=== PATIENT | female | born 1995 | race Caucasian/White ===

== ENCOUNTER 2021-11-01 23:56 | Inpatient (IN) | payer MEDICAID, SELFPAY ==
[2021-11-02] VITALS (9 sets, daily range): BP systolic 108–143; BP diastolic 71–90; PULSE 89–131; RESP 16–18; TEMP 36.6–39.2; O2SAT 97–100; BMI 20.2
--- NOTE | 2021-11-02 00:46 | XRR_ITS ---
PROCEDURE INFORMATION: Exam: XR Chest Exam date and time: 11/02/2021 1:06 AM Age: 25 years old Clinical indication: Fever; Additional info: Fever post TECHNIQUE: Imaging protocol: Radiologic exam of the chest. Views: 1 view. COMPARISON: No relevant prior studies available. FINDINGS: Lungs: There are normal lung volumes without interstitial or airspace opacities. Pleural spaces: There are no pleural effusions or pneumothorax. Heart/Mediastinum: The heart size is normal. The mediastinal contour is normal. The trachea is in the midline. Bones/joints: No acute abnormalities. XR/XR chest 1V portable [id number] IMPRESSION: No chest radiographic evidence of acute cardiopulmonary disease.
--- NOTE | 2021-11-02 00:46 | USR_ITS ---
PROCEDURE INFORMATION: Exam: US Nonobstetric Pelvis; Complete Exam date and time: 11/02/2021 2:03 AM Age: 25 years old Clinical indication: Pelvic pain; Additional info: Fever vaginal bleeding post TECHNIQUE: Imaging protocol: Transabdominal pelvic nonobstetric ultrasound. Complete exam. Real time ultrasound with image documentation. COMPARISON: No relevant prior studies available. FINDINGS: Uterus: The transabdominal images of the pelvis show enlarged, heterogeneous echotexture uterus, measuring 13.1 x 11.8 x 11.7 cm in size. Small amount of intrauterine cavity heterogeneous echotexture fluid is seen. The endometrial stripe measures 1.9 cm. Color Doppler flow assessment was not performed by the cephalometric technician, which limits evaluation. Right ovary/adnexa: The right ovary measures 4 x 1.9 x 2 cm. Normal blood flow on Doppler imaging. No mass. Left ovary/adnexa: The left ovary measures 3.8 x 5.5 x 4.4 cm. Normal blood flow on Doppler imaging. No mass. Intraperitoneal space: There is no free fluid in the cul-de-sac. Urinary bladder: Not distended on the exam, limiting assessment. US/US pelvic limited [id number] IMPRESSION: 1. Enlarged, heterogeneous echotexture uterus, measuring 13.1 x 11.8 x 11.7 cm in size. Small amount of intrauterine cavity heterogeneous echotexture fluid. The endometrial stripe measures 1.9 cm. 2. Unremarkable sonographic appearance of the ovaries. 3. No free fluid in the pelvic cul-de-sac.
[2021-11-02] MEDS: ibuprofen 600 mg Tablet PO (01:42)
[2021-11-02] MEDS: sodium chloride 0.9% 1,000 ML 999 ML IV ×2 (01:45→03:35)
--- NOTE | 2021-11-02 01:45 | ED_ITS ---
HPI - Fever General: Chief Complaint: Fever Stated Complaint: fever; chills; gave 4 days ago Time Seen by Provider: 11/02/21 00:58 Source: patient and family History of Present Illness: 25-year-old female who gave via vaginal delivery 4 days prior. She presents with fever today. She has some chills. She has not noticed an increase in bleeding, or any other vaginal discharge. No increased pelvic pain, although she does have some pelvic pain and tenderness. No cough, no shortness of breath, no vomiting. No known sick contacts. Child is healthy. MD elicited complaint: fever Onset (ago): hour(s) Context: recent hospitalization and other Exacerbating factors: nothing Relieving factors: acetaminophen Associated symptoms: Reports abdominal pain and chills; Deny flank pain, chest pain, confusion, cough, diarrhea, dysuria, headache(s), nausea, short of breath, vaginal discharge or vomiting Treatments prior to arrival fever: acetaminophen Review of Systems Const: Reports: chills ENMT: Denies: throat pain Card: Denies: chest pain Resp: Denies: dyspnea, productive cough or non-productive cough GI: Reports: abdominal pain; Denies: nausea, vomiting or diarrhea : Denies: flank pain, dysuria or vaginal discharge Neuro: Denies: headache(s) or confusion Physical Exam Const: GENERAL APPEARANCE: cooperative; not frail appearing HENMT: COMMON NORMALS: normocephalic, atraumatic and Normal external nose present HEAD & SCALP: normocephalic and atraumatic FACE & SINUS: normal facial exam and face symmetric NOSE: Normal external nose present Eye: COMMON NORMALS: Equal, round and reactive pupils present and EOMs intact bilaterally PUPIL: Yes Equal, round and reactive pupils present Neck/C-Spine: GENERAL: Yes trachea midline Chest: CHEST: Yes Symmetrical chest wall rise Resp: COMMON NORMALS: normal respiratory effort, No use of accessory muscles and clear to auscultation bilaterally AUSCULTATION: clear to auscultation bilaterally Cardio: COMMON NORMALS: regular rate and regular rhythm RATE: regular rate RHYTHM: regular rhythm GI: COMMON NORMALS: Normal to inspection, nondistended, normoactive bowel sounds present and Soft to palpation PALPATION: Yes Soft to palpation and Yes Tenderness to palpation present (GI) (Mild suprapubic) Extremity: COMMON NORMALS: normal to inspection and no pedal edema Neuro: ENRIQUE COMA SCALE: document GCS findings [place] coma scale eye o pening: Spontaneous [place] coma scale verbal response: Orientated Enrique coma scale motor response: Obey commands [place] coma scale total score: 15 Course Vital Signs: Vital signs: Vital Signs Temperature 101.6 F H 11/02/21 15:22 Pulse Rate 118 H 11/02/21 12:00 Respiratory Rate 16 11/02/21 12:00 Blood Pressure 127/83 11/02/21 12:00 Pulse Oximetry 97 11/02/21 12:00 MDM - Fever Medical Decision Making Significant fever here. She has a Leukocytosis with a bit of a left shift. urinanalysis is contaminated, but does show increased number of white cells with leukocyte esterase. Pelvic ultrasound shows an endometrial stripe of 1.9 centimeters, and heterogeneous echotexture material in the uterus. Clinical diagnosis of endometritis. Spoke with gynecology. Admission, broad spectrum antibiotics, fluid support, and symptomatic treatment. He will see later today. Lab Data : 11/02/21 01:45 11/02/21 01:45 Radiology Impressions Chest X-Ray 11/02/21 00:46 IMPRESSION: No chest radiographic evidence of acute cardiopulmonary disease. Pelvis Ultrasound 11/02/21 00:46 IMPRESSION: 1. Enlarged, heterogeneous echotexture uterus, measuring 13.1 x 11.8 x 11.7 cm in size. Small amount of intrauterine cavity heterogeneous echotexture fluid. The endometrial stripe measures 1.9 cm. 2. Unremarkable sonographic appearance of the ovaries. 3. No free fluid in the pelvic cul-de-sac. Laboratory Results WBC 15.5 10^3/uL (4.0-10.0) H 11/02/21 01:45 RBC 3.94 10^6/uL (4.1-5.3) L 11/02/21 01:45 Hgb 13.3 g/dL (11.5-15.3) 11/02/21 01:45 Hct 35.9 % (37.0-47.0) L 11/02/21 01:45 MCV 91.1 fl (81-99) 11/02/21 01:45 MCH 33.8 pg (28.0-34.0) 11/02/21 01:45 MCHC 37.0 g/dL (30.0-36.0) H 11/02/21 01:45 RDW 11.6 % (12.1-15.1) L 11/02/21 01:45 Plt Count 221 10^3/cmm (130-400) 11/02/21 01:45 MPV 9.3 fL (7.4-10.4) 11/02/21 01:45 Neut % (Auto) 86.8 % 11/02/21 01:45 Lymph % (Auto) 7.6 % 11/02/21 01:45 [place] % (Auto) 4.6 % 11/02/21 01:45 Eos % (Auto) 0.3 % 11/02/21 01:45 Baso % (Auto) 0.2 % 11/02/21 01:45 Neut # (Auto) 13.46 10^3/uL (1.8-7.7) H 11/02/21 01:45 Lymph # (Auto) 1.2 10^3/uL (0.8-4.8) 11/02/21 01:45 [place] # (Auto) 0.7 10^3/uL (0.2-0.9) 11/02/21 01:45 Eos # (Auto) 0.0 10^3/uL (0.0-0.8) 11/02/21 01:45 Baso # (Auto) 0.0 10^3/uL (0.0-0.1) 11/02/21 01:45 Nucleated RBC % (auto) 0 % 11/02/21 01:45 Nucleated RBCs # 0.0 /100WBC 11/02/21 01:45 PT 12.70 SECONDS (12.1-14.9) 11/02/21 01:45 INR 0.93 (0.8-1.2) 11/02/21 01:45 APTT 30.3 SECONDS (23.9-36.7) 11/02/21 01:45 Sodium 136 mmol/L (136-145) 11/02/21 01:45 Potassium 3.6 mmol/L (3.5-5.1) 11/02/21 01:45 Chloride 103 mmol/L (98-107) 11/02/21 01:45 Carbon Dioxide 21 mmol/L (22-29) L 11/02/21 01:45 Anion Gap 15.6 (5-19) 11/02/21 01:45 BUN 15 mg/dL (6-20) 11/02/21 01:45 Creatinine 0.6 mg/dL (0.5-0.9) 11/02/21 01:45 GFR Calculation 120.8 mL/min (90-130) 11/02/21 01:45 Glucose 96 mg/dL (65-115) 11/02/21 01:45 Calculated Osmolality 283 mOsm/kg (285-295) L 11/02/21 01:45 Lactate 1.1 mmol/L (0.5-2.2) 11/02/21 01:45 Calcium 9.1 mg/dL (8.5-10.5) 11/02/21 01:45 Total Bilirubin 0.2 mg/dL (0.15-1.2) 11/02/21 01:45 AST 43 U/L (0-32) H 11/02/21 01:45 ALT 63 U/L (0-33) H 11/02/21 01:45 Alkaline Phosphatase 153 IU/L (35-105) H 11/02/21 01:45 C-Reactive Protein 54.0 mg/L (0.0-4.9) H 11/02/21 01:45 Total Protein 6.8 g/dL (6.6-8.7) 11/02/21 01:45 Albumin 3.7 g/dL (3.5-5.2) 11/02/21 01:45 Globulin 3.1 g/dL (1.3-4.6) 11/02/21 01:45 Urine Color [place] (Yellow) 11/02/21 01:56 Urine Appearance Hazy (CLEAR) A 11/02/21 01:56 Urine pH 5 (5-7) 11/02/21 01:56 Ur Specific [place] 1.020 (1.005-1.030) 11/02/21 01:56 Urine Protein Trace (Negative) 11/02/21 01:56 Urine Glucose (UA) Norm (Normal) 11/02/21 01:56 Urine Ketones Negative (Negative) 11/02/21 01:56 Urine Blood 3+ (Negative) H 11/02/21 01:56 Urine Nitrate Negative (Negative) 11/02/21 01:56 Urine Bilirubin Neg (Negative) 11/02/21 01:56 Urine Urobilinogen Norm mg/dL (Negative) 11/02/21 01:56 Ur Leukocyte Esterase 2+ (Negative) H 11/02/21 01:56 Urine RBC 25-40 /hpf (0-2) H 11/02/21 01:56 Urine WBC 55-80 /hpf (0-5) H 11/02/21 01:56 Ur Squamous Epith Cells 15-25 /hpf (0-5) H 11/02/21 01:56 Amorphous Sediment Not Reportable 11/02/21 01:56 Urine Bacteria 1+ /hpf (NONE) H 11/02/21 01:56 Urine Mucus Trace /hpf 11/02/21 01:56 Coronavirus 229E (PCR) Not detected (NOT DETECT) 11/02/21 01:48 SARS-CoV-2 (PCR) Not detected (NOT DETECT) 11/02/21 01:48 Discharge Plan Discharge Patient Disposition: Admitted As Inpatient Admit Provider: Daren Saxena Clinical Impression: fever, Endometritis Condition: Stable Coding Level of Care Code ED Assistant Auto Center Manager for [place] Fwd Exam Comprehensive
[2021-11-02 01:55] LABS: Basophils % 0.2 %; Eosinophils % 0.3 %; Hematocrit 35.9 % (37.0-47.0); Hemoglobin 13.3 g/dL (11.5-15.3); Lymphocytes # 1.2 10^3/uL (0.8-4.8); Lymphocytes % 7.6 %; Mean Corpuscular Hemoglobin 33.8 pg (28.0-34.0); Mean Corpuscular Volume 91.1 fl (81-99); Mean Platelet Volume 9.3 fL (7.4-10.4); Monocytes # 0.7 10^3/uL (0.2-0.9); Monocytes % 4.6 %; Neutrophils # 13.46 10^3/uL (1.8-7.7); Neutrophils % 86.8 %; Nucleated Red Blood Cells % 0 %; Platelet Count 221 10^3/cmm (130-400); Red Blood Count 3.94 10^6/uL (4.1-5.3); Red Cell Distribution Width 11.6 % (12.1-15.1); White Blood Count 15.5 10^3/uL (4.0-10.0)
[2021-11-02 02:05] LABS: INR 0.93 (0.8-1.2)
[2021-11-02 02:06] LABS: Partial Thromboplastin Time 30.3 SECONDS (23.9-36.7)
[2021-11-02 02:12] LABS: Add Urine Microscopic? YES; Bilirubin Urine Neg (Negative); Blood Urine 3+ (Negative); Glucose Urine UA Norm (Normal); Ketones Urine Negative (Negative); Leukocyte Esterase Urine 2+ (Negative); Nitrate Urine Negative (Negative); Protein Urine Trace (Negative); Urine Appearance Hazy (CLEAR); Urine Color Orange (Yellow); Urobilinogen Urine Norm (Negative); pH Urine 5 (5-7)
[2021-11-02 02:13] LABS: RBC Urine 25-40 /hpf (0-2); Squamous Epithelial Cell Urine 15-25 /hpf (0-5); WBC Urine 55-80 /hpf (0-5)
[2021-11-02 02:14] LABS: Add Urine Culture? No; Bacteria Urine 1+ /hpf; Mucus Urine TRACE /hpf
[2021-11-02 02:14] LABS: Lactate (Lactic Acid level) 1.1 mmol/L (0.5-2.2)
[2021-11-02 02:17] LABS: Alanine Aminotransferase 63 U/L (0-33); Albumin Level 3.7 g/dL (3.5-5.2); Alkaline Phosphatase 153 IU/L (35-105); Anion Gap 15.6 (5-19); Aspartate Amino Transferase 43 U/L (0-32); Blood Urea Nitrogen 15 mg/dL (6-20); Calcium 9.1 mg/dL (8.5-10.5); Carbon Dioxide 21 mmol/L (22-29); Chloride 103 mmol/L (98-107); Globulin 3.1 g/dL (1.3-4.6); Glomerular Filtration Rate 120.8 mL/min (90-130); Glucose 96 mg/dL (65-115); Osmolality Calculated 283 mOsm/kg (285-295); Potassium 3.6 mmol/L (3.5-5.1); Sodium 136 mmol/L (136-145); Total Bilirubin 0.2 mg/dL (0.15-1.2); Total Protein 6.8 g/dL (6.6-8.7)
[2021-11-02] MEDS: piperacillin-tazobactam 4.5 GM in sodium chloride 0.9% (plus) 50 ML IV (02:44)
[2021-11-02 03:40] LABS: Adenovirus Not Detected (NOT DETECT); Chlamydia Pneumoniae Not Detected (NOT DETECT); Coronavirus 229E,HKU1,NL63,OC4 Not Detected (NOT DETECT); Human Metapneumovirus Not Detected (NOT DETECT); Human Rhinovirus/Enterovirus Not Detected (NOT DETECT); Influenza A Not Detected (NOT DETECT); Influenza A H1 Not Detected (NOT DETECT); Influenza A H1-2009 Not Detected (NOT DETECT); Influenza A H3 Not Detected (NOT DETECT); Influenza B Not Detected (NOT DETECT); Mycoplasma Pneumoniae Not Detected (NOT DETECT); Parainfluenza Virus Type 1 Not Detected (NOT DETECT); Parainfluenza Virus Type 2 Not Detected (NOT DETECT); Parainfluenza Virus Type 3 Not Detected (NOT DETECT); Parainfluenza Virus Type 4 Not Detected (NOT DETECT); Respiratory Syncytial Virus A Not Detected (NOT DETECT); Respiratory Syncytial Virus B Not Detected (NOT DETECT); SARS-COV-2 Not Detected (NOT DETECT)
[2021-11-02] MEDS: sodium chloride 0.9% 1,000 ML 100 ML IV ×2 (06:48→17:51)
[2021-11-02] MEDS: clindamycin 600 MG/50 ML PREMIX 100 MG IV (06:49)
[2021-11-02] MEDS: acetaminophen 500 mg Tablet 1000 MG PO ×3 (12:08→20:36)
--- NOTE | 2021-11-02 12:45 | PM.OBGYHP ---
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 She was diagnosed with endometritis and was admitted for IV antibiotic therapy. Review of Systems Const: Reports: chills ENMT: Denies: throat pain Card: Denies: chest pain Resp: Denies: dyspnea, productive cough or non-productive cough GI: Reports: abdominal pain; Denies: nausea, vomiting or diarrhea : Reports: vaginal bleeding (Normal lochia); Denies: flank pain, dysuria, vaginal discharge or pelvic pain Skin/Breast: Reports: breast swelling, nipple discharge and change in breast shape; Denies: breast pain Neuro: Denies: headache(s) or confusion Medications/Allergies Home Medications Medication Instructions Recorded Confirmed Last Taken Type acetaminophen 325 mg capsule 325 mg PO Q4H PRN #60 cap 11/05/21 Unknown Rx amoxicillin 875 mg-potassium 1 tab PO BID 7 Days #14 tab 11/05/21 Unknown Rx clavulanate 125 mg tablet Allergies Allergy/AdvReac Type Severity Reaction Status Date / Time No Known Allergies Allergy Unverified 11/02/21 12:12 Vitals/I&O/Wt Last Vital Signs Temp 98.4 F 11/05/21 08:00 Pulse 102 H 11/05/21 08:00 Resp 16 11/05/21 08:00 BP 121/89 11/05/21 08:00 Pulse Ox 98 11/05/21 08:00 11/04/21 11/05/21 11/05/21 22:59 06:59 14:59 Intake Total 1697.75 / 3474.417 500 / 3974.417 50 / 50 Balance 1697.75 / 3474.417 500 / 3974.417 50 / 50 Physical Exam Narrative: GA; alert and oriented x 3 HEENT: normal Breasts: engorged Nipples - skin intact Lungs; clear to auscultation Heart: regular rhythm, no murmurs. Abd: Appropriately tender. BS+. Uterine fundus below umbilicus. No Fundal Tenderness. Perineum: normal lochia. Extremities: no edema, no cyanosis, no tenderness. Data : 11/02/21 01:45 11/02/21 01:45 Results DOCUMENT REVIEW SPECIALIST Ultrasound [address] [id number] ReportSigned Patient: Alexis Alvarez #: [id number]: 1995Acct#:[id number]/Sex: 25 / FADM Date: 11/01/21Loc: ERRoom/Bed:Attending Dr: Ordering Provider/Ordering MD: Shahram Cosme DO Date of Service: 11/02/21 Procedure(s): US pelvic limited [id number] Accession Number(s): [id number] Report Number: [id number] PROCEDURE INFORMATION: Exam: US Nonobstetric Pelvis; Complete Exam date and time: 11/02/2021 2:03 AM Age: 25 years old Clinical indication: Pelvic pain; Additional info: Fever vaginal bleeding post TECHNIQUE: Imaging protocol: Transabdominal pelvic nonobstetric ultrasound. Complete exam. Real time ultrasound with image documentation. COMPARISON: No relevant prior studies available. FINDINGS: Uterus: The transabdominal images of the pelvis show enlarged, heterogeneous echotexture uterus, measuring 13.1 x 11.8 x 11.7 cm in size. Small amount of intrauterine cavity heterogeneous echotexture fluid is seen. The endometrial stripe measures 1.9 cm. Color Doppler flow assessment was not performed by the senior python developer, which limits evaluation. Right ovary/adnexa: The right ovary measures 4 x 1.9 x 2 cm. Normal blood flow on Doppler imaging. No mass. Left ovary/adnexa: The left ovary measures 3.8 x 5.5 x 4.4 cm. Normal blood flow on Doppler imaging. No mass. Intraperitoneal space: There is no free fluid in the cul-de-sac. Urinary bladder: Not distended on the exam, limiting assessment. US/US pelvic limited [id number] IMPRESSION: 1. Enlarged, heterogeneous echotexture uterus, measuring 13.1 x 11.8 x 11.7 cm in size. Small amount of intrauterine cavity heterogeneous echotexture fluid. The endometrial stripe measures 1.9 cm. 2. Unremarkable sonographic appearance of the ovaries. 3. No free fluid in the pelvic cul-de-sac. Dictated By:Uche Hernandez MDSigned By:Uche Hernandez MDSigned Date/Time:11/02/212DD/ 0203 A&P Assessment and plan (1) endometritis: Rectum well 25-year-old female G1, P1 is status post a spontaneous vaginal delivery 4 days ago. Came to the emergency room with elevated temperature 102.6F. Diagnosed with endometritis. Admitted for IV triple antibiotic therapy. Blood cultures pending. Plan We will continue antibiotic therapy until 48 hours afebrile. Status: Acute Attestations Medical Necessity Statement*: In my professional opinion per admitting diagnosis Coding Level of Care Code Acute Printed Circuit Board Panels Plater for Vickie Pabon Diagnoses endometritis O86.12
[2021-11-02] MEDS: ampicillin 2,000 MG in sodium chloride 0.9% (plus) 50 ML 100 MG IV ×2 (12:59→17:50)
[2021-11-02] MEDS: clindamycin 900 MG/50 ML PREMIX 100 MG IV ×2 (13:40→20:36)
[2021-11-03] VITALS: BP 122/74; PULSE 82; RESP 17; TEMP 36.6; O2SAT 97
[2021-11-03] MEDS: ampicillin 2,000 MG in sodium chloride 0.9% (plus) 50 ML 100 MG IV ×4 (01:04→18:53)
[2021-11-03 04:00] VITALS: BP 129/85; PULSE 92; RESP 17; TEMP 37.2; O2SAT 98
[2021-11-03] MEDS: sodium chloride 0.9% 1,000 ML 100 ML IV ×2 (04:16→15:57)
[2021-11-03] MEDS: clindamycin 900 MG/50 ML PREMIX 100 MG IV ×3 (05:06→20:41)
[2021-11-03 08:00] VITALS: BP 130/73; PULSE 75; RESP 15; TEMP 37.4; O2SAT 99
--- NOTE | 2021-11-03 08:07 | P.PN_ITS ---
Subjective Subjective: Rectal 25-year-old female 6-day with endometritis. Antibiotic therapy Vitals/I&O/Wt Last Vital Signs Temp 97.9 F 11/04/21 04:00 Pulse 88 11/04/21 04:00 Resp 17 11/04/21 04:00 BP 125/76 11/04/21 04:00 Pulse Ox 97 11/04/21 04:00 11/03/21 11/04/21 11/04/21 22:59 06:59 14:59 Intake Total 1647.75 / 2397.75 1138.333 / 3536.083 Balance 1647.75 / 2397.75 1138.333 / 3536.083 Physical Exam Narrative: GA; alert and oriented x 3 HEENT: normal Breasts: engorged Nipples - skin intact Lungs; clear to auscultation Heart: regular rhythm, no murmurs. Abd: Appropriately tender. BS+. Uterine fundus below umbilicus. No Fundal Tenderness. Perineum: normal lochia. Extremities: no edema, no cyanosis, no tenderness. Data : 11/02/21 01:45 11/02/21 01:45 A&P Assessment and plan (1) Endometritis: Rectum well 25-year-old female G1, P1 is status post a spontaneous vaginal delivery 6 days ago. Came to the emergency room with elevated temperature. Diagnosed with endometritis started on IV triple antibiotic therapy. Preliminary blood cultures negative. Status: Acute (2) fever: Status: Acute Plan We will continue antibiotic therapy for 48 hours afebrile. Attestations Medical Necessity Statement*: In my professional opinion per admitting diagnosis Coding Level of Care Code Acute Loan Examiner for Vickie Pabon Diagnoses Endometritis N71.9 fever O86.4
--- NOTE | 2021-11-03 10:47 | PC.CHAP ---
Pastoral Care Encounter/Spiritual Assessment Type of Contact [] Declined account planner visit [] Patient/Family/Request visit [] Outpatient visit [] Follow-up visit [] Physician referral [] Code/Alert [x] Routine visit [] Staff referral [] Actively dying [] Patient sleeping [] Family support [] [] Out of room [] Palliative care [] [] Receiving care in room [] Pre-surgical visit [] Trauma [] Long length of stay [] ICU visit [] Other: Relational/Emotional Strength [x] Patient feels connected with others/family/visitors/staff [] Distress [] Loneliness/isolation [] Abandonment Spirituality of Patient [x] Person of Martha [] Attends Yazidi of their Martha [x] Believes in Prayer [] Reads Bible or Oriental Orthodox materials [] There are Spiritual issues to be addressed 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 Interventions [x] Prayer [x] Active listening [] Non-anxious presence [] Spiritual/emotional support [] Crisis/trauma care [] Spiritual counseling [] Bereavement support [] Provided bereavement packet [] Provided Bible/devotional materials [] Provided toy/stuffed animal, coloring book to patient or family member [] Provided Communion [] Anointing/Alger [] Salvation [x] Completed spiritual assessment [] Other: Impact on Illness or Injury [] Angry [] Fearful [] Anxious [] Often cries [] Exhaustion [] Unable to work [] Unable to attend spiritism [] Unable to walk/stand [] Unable to read [] Unable to drive [] Unable to eat/drink [] Unable to sleep [] Unable to be with family [] Patient intubated [] Other: Summary Time spent with patient 10 min
[2021-11-03 11:57] VITALS: BP 112/72; PULSE 94; RESP 15; TEMP 36.8; O2SAT 98
[2021-11-03 13:19] LABS: Gentamicin Trough 0.3 ug/mL (0.0-8.0)
[2021-11-03 15:36] VITALS: BP 118/82; PULSE 98; RESP 15; TEMP 37.3; O2SAT 98
[2021-11-03 19:58] VITALS: BP 130/89; PULSE 93; RESP 17; TEMP 37.3; O2SAT 97
[2021-11-04] VITALS: RESP 16; TEMP 36.2
[2021-11-04] MEDS: ampicillin 2,000 MG in sodium chloride 0.9% (plus) 50 ML 100 MG IV ×4 (00:18→18:13)
[2021-11-04 04:00] VITALS: BP 125/76; PULSE 88; RESP 17; TEMP 36.6; O2SAT 97
[2021-11-04] MEDS: sodium chloride 0.9% 1,000 ML 100 ML IV ×2 (04:02→11:54)
[2021-11-04] MEDS: clindamycin 900 MG/50 ML PREMIX 100 MG IV ×3 (04:59→21:11)
[2021-11-04 08:00] VITALS: BP 111/77; PULSE 94; RESP 16; TEMP 36.6; O2SAT 98
--- NOTE | 2021-11-04 08:13 | PM.PN ---
Subjective Subjective: Rectal 25-year-old female 7-days with endometritis. Antibiotic therapy. Without fever Vitals/I&O/Wt Last Vital Signs Temp 97.9 F 11/04/21 04:00 Pulse 88 11/04/21 04:00 Resp 17 11/04/21 04:00 BP 125/76 11/04/21 04:00 Pulse Ox 97 11/04/21 04:00 11/03/21 11/04/21 11/04/21 22:59 06:59 14:59 Intake Total 1647.75 / 2397.75 1138.333 / 3536.083 Balance 1647.75 / 2397.75 1138.333 / 3536.083 Physical Exam Narrative: GA; alert and oriented x 3 HEENT: normal Breasts: engorged Nipples - skin intact Lungs; clear to auscultation Heart: regular rhythm, no murmurs. Abd: Appropriately tender. BS+. Uterine fundus below umbilicus. No Fundal Tenderness. Perineum: normal lochia. Extremities: no edema, no cyanosis, no tenderness. Data : 11/02/21 01:45 11/02/21 01:45 A&P Assessment and plan (1) Endometritis: MrsBethanie Rectum well 25-year-old female G1, P1 is status post a spontaneous vaginal delivery 7 days ago. Came to the emergency room with elevated temperature. Diagnosed with endometritis started on IV triple antibiotic therapy. Preliminary blood cultures negative. Status: Acute (2) fever: Status: Acute Plan We will continue antibiotic therapy for 48 hours afebrile. Plan to discharge home tomorrow morning Attestations Medical Necessity Statement*: My professional opinion per admitting diagnosis Coding Level of Care Code Acute Special Education Math Teacher for [facility] Fwd Diagnoses Endometritis N71.9 fever O86.4
[2021-11-04 12:00] VITALS: BP 125/84; PULSE 96; RESP 16; TEMP 36.5; O2SAT 98
[2021-11-04 16:00] VITALS: BP 119/85; PULSE 96; RESP 16; TEMP 37.2; O2SAT 98
[2021-11-04 19:18] VITALS: BP 131/90; PULSE 98; RESP 18; TEMP 36.8; O2SAT 98
[2021-11-05] VITALS: RESP 18; TEMP 36.8
[2021-11-05] MEDS: ampicillin 2,000 MG in sodium chloride 0.9% (plus) 50 ML 100 MG IV ×2 (00:51→06:39)
[2021-11-05] MEDS: clindamycin 900 MG/50 ML PREMIX 100 MG IV (05:15)
[2021-11-05] MEDS: sodium chloride 0.9% 1,000 ML 100 ML IV (05:25)
[2021-11-05 05:26] VITALS: BP 118/80; PULSE 70; RESP 16; TEMP 36.7; O2SAT 97
[2021-11-05 08:00] VITALS: BP 121/89; PULSE 102; RESP 16; TEMP 36.9; O2SAT 98
--- NOTE | 2021-11-05 08:30 | P.DS_ITS ---
Discharge Providers DIRECTOR OF RECRUITMENT AND ADMISSIONS Date of Admission: 11/02/21 04:25 Date of Discharge: 11/05/21 Attending Provider at Admission: Daren Saxena MD Attending Provider at Discharge: Daren Saxena MD Diagnoses at Discharge Discharge Diagnosis (1) fever: Status: Acute (2) endometritis: Status: Acute Reason for Visit Reason for Visit: fever; chills; gave 4 days ago Brief History: 25-year-old female status post spontaneous vaginal delivery developed fever and chills on day 4. Hospital Course Hospital Course Mrs. Alvarez 25-year-old female G1, P1 is status post 7 days, came to the emergency room with feve of 102.6 F. She was diagnosed with endometritis and was admitted for IV antibiotic therapy. Antibiotic therapy was continue until the patient was 48 hours afebrile. Blood cultures were negative. Patient was counseled regarding pelvic rest for 6 weeks (no sex, no tampons, no vaginal douches). Return to the emergency room if any fever, increased bleeding or pain. Physical Exam Narrative: GA; alert and oriented x 3 HEENT: normal Breasts: engorged Nipples - skin intact Lungs; clear to auscultation Heart: regular rhythm, no murmurs. Abd: Appropriately tender. BS+. Uterine fundus below umbilicus. No Fundal Tenderness. Perineum: normal lochia. Extremities: no edema, no cyanosis, no tenderness. Discharge Data Studies Completed and Pending Completed Studies During Hospitalization Category Date Time Status XR chest 1V portable [id number] Urgent Exams 11/02/21 00:46 Completed US pelvic limited [id number] Urgent Ultrasound 11/02/21 00:46 Completed Pending at discharge Category Date Time Status Blood Culture Stat Lab 11/02/21 02:40 Results Radiology Impressions Chest X-Ray 11/02/21 00:46 IMPRESSION: No chest radiographic evidence of acute cardiopulmonary disease. Pelvis Ultrasound 11/02/21 00:46 IMPRESSION: 1. Enlarged, heterogeneous echotexture uterus, measuring 13.1 x 11.8 x 11.7 cm in size. Small amount of intrauterine cavity heterogeneous echotexture fluid. The endometrial stripe measures 1.9 cm. 2. Unremarkable sonographic appearance of the ovaries. 3. No free fluid in the pelvic cul-de-sac. Laboratory Results WBC 15.5 10^3/uL (4.0-10.0) H 11/02/21 01:45 RBC 3.94 10^6/uL (4.1-5.3) L 11/02/21 01:45 Hgb 13.3 g/dL (11.5-15.3) 11/02/21 01:45 Hct 35.9 % (37.0-47.0) L 11/02/21 01:45 MCV 91.1 fl (81-99) 11/02/21 01:45 MCH 33.8 pg (28.0-34.0) 11/02/21 01:45 MCHC 37.0 g/dL (30.0-36.0) H 11/02/21 01:45 RDW 11.6 % (12.1-15.1) L 11/02/21 01:45 Plt Count 221 10^3/cmm (130-400) 11/02/21 01:45 MPV 9.3 fL (7.4-10.4) 11/02/21 01:45 Neut % (Auto) 86.8 % 11/02/21 01:45 Lymph % (Auto) 7.6 % 11/02/21 01:45 [place] % (Auto) 4.6 % 11/02/21 01:45 Eos % (Auto) 0.3 % 11/02/21 01:45 Baso % (Auto) 0.2 % 11/02/21 01:45 Neut # (Auto) 13.46 10^3/uL (1.8-7.7) H 11/02/21 01:45 Lymph # (Auto) 1.2 10^3/uL (0.8-4.8) 11/02/21 01:45 [place] # (Auto) 0.7 10^3/uL (0.2-0.9) 11/02/21 01:45 Eos # (Auto) 0.0 10^3/uL (0.0-0.8) 11/02/21 01:45 Baso # (Auto) 0.0 10^3/uL (0.0-0.1) 11/02/21 01:45 Nucleated RBC % (auto) 0 % 11/02/21 01:45 Nucleated RBCs # 0.0 /100WBC 11/02/21 01:45 PT 12.70 SECONDS (12.1-14.9) 11/02/21 01:45 INR 0.93 (0.8-1.2) 11/02/21 01:45 APTT 30.3 SECONDS (23.9-36.7) 11/02/21 01:45 Sodium 136 mmol/L (136-145) 11/02/21 01:45 Potassium 3.6 mmol/L (3.5-5.1) 11/02/21 01:45 Chloride 103 mmol/L (98-107) 11/02/21 01:45 Carbon Dioxide 21 mmol/L (22-29) L 11/02/21 01:45 Anion Gap 15.6 (5-19) 11/02/21 01:45 BUN 15 mg/dL (6-20) 11/02/21 01:45 Creatinine 0.6 mg/dL (0.5-0.9) 11/02/21 01:45 GFR Calculation 120.8 mL/min (90-130) 11/02/21 01:45 Glucose 96 mg/dL (65-115) 11/02/21 01:45 Calculated Osmolality 283 mOsm/kg (285-295) L 11/02/21 01:45 Lactate 1.1 mmol/L (0.5-2.2) 11/02/21 01:45 Calcium 9.1 mg/dL (8.5-10.5) 11/02/21 01:45 Total Bilirubin 0.2 mg/dL (0.15-1.2) 11/02/21 01:45 AST 43 U/L (0-32) H 11/02/21 01:45 ALT 63 U/L (0-33) H 11/02/21 01:45 Alkaline Phosphatase 153 IU/L (35-105) H 11/02/21 01:45 C-Reactive Protein 54.0 mg/L (0.0-4.9) H 11/02/21 01:45 Total Protein 6.8 g/dL (6.6-8.7) 11/02/21 01:45 Albumin 3.7 g/dL (3.5-5.2) 11/02/21 01:45 Globulin 3.1 g/dL (1.3-4.6) 11/02/21 01:45 Urine Color [place] (Yellow) 11/02/21 01:56 Urine Appearance Hazy (CLEAR) A 11/02/21 01:56 Urine pH 5 (5-7) 11/02/21 01:56 Ur Specific Wall 1.020 (1.005-1.030) 11/02/21 01:56 Urine Protein Trace (Negative) 11/02/21 01:56 Urine Glucose (UA) Norm (Normal) 11/02/21 01:56 Urine Ketones Negative (Negative) 11/02/21 01:56 Urine Blood 3+ (Negative) H 11/02/21 01:56 Urine Nitrate Negative (Negative) 11/02/21 01:56 Urine Bilirubin Neg (Negative) 11/02/21 01:56 Urine Urobilinogen Norm mg/dL (Negative) 11/02/21 01:56 Ur Leukocyte Esterase 2+ (Negative) H 11/02/21 01:56 Urine RBC 25-40 /hpf (0-2) H 11/02/21 01:56 Urine WBC 55-80 /hpf (0-5) H 11/02/21 01:56 Ur Squamous Epith Cells 15-25 /hpf (0-5) H 11/02/21 01:56 Amorphous Sediment Not Reportable 11/02/21 01:56 Urine Bacteria 1+ /hpf (NONE) H 11/02/21 01:56 Urine Mucus Trace /hpf 11/02/21 01:56 Gentamicin Trough 0.3 ug/mL (0.0-8.0) 11/03/21 12:47 Coronavirus 229E (PCR) Not detected (NOT DETECT) 11/02/21 01:48 SARS-CoV-2 (PCR) Not detected (NOT DETECT) 11/02/21 01:48 Vitals Last Vital Signs Temp 98.4 F 11/05/21 08:00 Pulse 102 H 11/05/21 08:00 Resp 16 11/05/21 08:00 BP 121/89 11/05/21 08:00 Pulse Ox 98 11/05/21 08:00 Results HEMATOLOGIST ONCOLOGIST Ultrasound [address] [address]Sfpbewhivq ReportSigned Patient: Anaid AlvarezDavidfatmata #: [id number]: 1995Acct#: [id number]/Sex: 25 / FADM Date: 11/01/21Loc: ERRoom/Bed:Attending Dr: Ordering Provider/Ordering MD: Shahram Cosme DO Date of Service: 11/02/21 Procedure(s): US pelvic limited [id number] Accession Number(s): [id number] Report Number: [id number] PROCEDURE INFORMATION: Exam: US Nonobstetric Pelvis; Complete Exam date and time: 11/02/2021 2:03 AM Age: 25 years old Clinical indication: Pelvic pain; Additional info: Fever vaginal bleeding post TECHNIQUE: Imaging protocol: Transabdominal pelvic nonobstetric ultrasound. Complete exam. Real time ultrasound with image documentation. COMPARISON: No relevant prior studies available. FINDINGS: Uterus: The transabdominal images of the pelvis show enlarged, heterogeneous echotexture uterus, measuring 13.1 x 11.8 x 11.7 cm in size. Small amount of intrauterine cavity heterogeneous echotexture fluid is seen. The endometrial stripe measures 1.9 cm. Color Doppler flow assessment was not performed by the puttying and calking supervisor, which limits evaluation. Right ovary/adnexa: The right ovary measures 4 x 1.9 x 2 cm. Normal blood flow on Doppler imaging. No mass. Left ovary/adnexa: The left ovary measures 3.8 x 5.5 x 4.4 cm. Normal blood flow on Doppler imaging. No mass. Intraperitoneal space: There is no free fluid in the cul-de-sac. Urinary bladder: Not distended on the exam, limiting assessment. US/US pelvic limited [id number] IMPRESSION: 1. Enlarged, heterogeneous echotexture uterus, measuring 13.1 x 11.8 x 11.7 cm in size. Small amount of intrauterine cavity heterogeneous echotexture fluid. The endometrial stripe measures 1.9 cm. 2. Unremarkable sonographic appearance of the ovaries. 3. No free fluid in the pelvic cul-de-sac. Dictated By:Uche Hernandez MDSigned By:Uche Hernandez MDSigned Date/Time:11/02/21 0312DD/ [address] [address]AOpu ReportSigned Patient: Alexis Alvarez #: [id number]: 1995Acct#:[id number]/Sex: 25 / FADM Date: 11/01/21Loc: ERRoom/Bed:Attending Dr: Ordering Provider/Ordering MD: Shahram Cosme DO Date of Service: 11/02/21 Procedure(s): XR chest 1V portable [id number] Accession Number(s): [id number] Report Number: [id number] PROCEDURE INFORMATION: Exam: XR Chest Exam date and time: 11/02/2021 1:06 AM Age: 25 years old Clinical indication: Fever; Additional info: Fever post TECHNIQUE: Imaging protocol: Radiologic exam of the chest. Views: 1 view. COMPARISON: No relevant prior studies available. FINDINGS: Lungs: There are normal lung volumes without interstitial or airspace opacities. Pleural spaces: There are no pleural effusions or pneumothorax. Heart/Mediastinum: The heart size is normal. The mediastinal contour is normal. The trachea is in the midline. Bones/joints: No acute abnormalities. XR/XR chest 1V portable [id number] IMPRESSION: No chest radiographic evidence of acute cardiopulmonary disease. Dictated By:Uche Hernandez MDSigned By:Uche Hernandez MDSigned Date/Time:11/02/21 0307 Discharge Plan Discharge Patient Disposition: Home Condition: Stable Prescriptions: New amoxicillin-pot clavulanate 875-125 mg tablet 1 tab PO BID 7 Days Qty: 14 0RF acetaminophen 325 mg capsule 325 mg PO Q4H PRN (Reason: fever or pain) Qty: 60 0RF Continued No Known Home Medications 0RF Discharge Orders: Discharge Order (Routine); Ordered 11/05/21 Ordered By: Daren Saxena Referrals: Daren Saxena MD [Physician] - 6 Weeks Discharge Diet: Usual diet Discharge Activity: Limit activity as instructed Patient Instructions: Opioid Safety, Endometritis (GEN), Vaginal Delivery (GEN), Caring for Your Baby (GEN), Bleeding (GEN), Your 's Appearance (GEN) Activity Restrictions/Additional Instructions: 1. Please call [facility] on next working day to make your appointment in 6 weeks. 2. Please stay home until you come back to the clinic on first post-operative check up. 3. Please follow instructions on your medications CAREFULLY. 4. If you have abdominal incision, do not cover it unless dressing is necessary because of drainage. OK to shower, but avoid bath. Leave steri-strips until they fall off. If they are still on one week after surgery, you may remove them. 5. If you had vaginal surgery or vaginal repair, Dr. Saxena may instruct you to take SITZ bath. 6. Yellow, blood tinged odorous vaginal discharge is usually normal after hysterectomy or vaginal surgeries. 7. No sexual intercourse, tampons, or douches until you are completely released from the post-operative care. 8. Avoid constipation by eating right and maybe using some Metamucil or Milk of Magnesia. 9. All prescription refills are given during the working hours. Please do no wait till it runs out. Call the clinic at [phone] before your medication runs out. The clinic will get in touch with your doctor to prescribe medications if necessary. 10. Please remain within 40 mile radius from our hospital because emergencies do happen now and then during the post-operative period. 11. If you have stairs at home, take one step at a time slowly and minimize the number of trips. It helps to stay in one floor for the next few days. No lifting except what you can lift by one hand until you are released from the post-operative care. 12. Driving is discouraged until you are well healed. It may be 3-4 weeks before you feel strong enough to drive. You should be able to turn and look through the rear window without pain and you should be able to push the brake pedal very hard without pain before you drive. No fast rules, but SAFETY should be your primary concern. DO NOT drive if you are on sedating medications such as narcotics. 13. Call the clinic (during working hours) to make urgent appointment or go to the Emergency room, if any of the following occurs: i. Vaginal bleeding becomes heavy, more than a period. ii. Incision becomes red and sore, or drains pus. iii. Your temperature is over 100.4 or you have chill. iv. IV site becomes red and swollen (a little ``knot?? is usually OK) v. Persistent nausea and vomiting vi. Persistent constipation or diarrhea vii. Rash or allergic reaction to medications. Discharge Attestations DIRECTOR OF RECRUITMENT AND ADMISSIONS Time Spent in Discharge Care*: greater than 30 min Coding Level of Care Code [facility] [employer] Rep for Chg Fwd Diagnoses fever O86.4 endometritis O86.12
[2021-11-05 09:52] VITALS: BP 121/89; PULSE 102; RESP 16; TEMP 36.9; O2SAT 98
== END 2021-11-05 09:53 | disposition home or self-care (01) | DRG 776 ==
LOC: ER 11-02 04:21 → MEDSURG 11-02 04:48
PROVIDERS: Admitting Provider Obstetrics & Gynecology; Emergency Provider Emergency Medicine; Visit Provider Obstetrics & Gynecology
DX: O86.12 Endometritis following delivery (principal)
CPT/HCPCS: 36415; 71045; 76857; 80053; 80170; 81001; 83605; 85025; 85610; 85730; 86140; 87040; 87635; 96361; 96365; 99285; J0290; J1580; J2543; J3490; J7030

== ENCOUNTER 2025-01-23 22:55 | Emergency (ER) | payer SELFPAY ==
--- OUTSIDE RECORDS SUMMARY | 2023-09-27 08:00 | XMS_ITS ---
Author Organization [facility] Address [address] [place] [address] Care Team Providers Care Flat Surfacer Jewel Name Role Phone Sal Mooney Primary Care Provider Catherine Sauceda [phone] REASON FOR VISIT viability & dates Encounters Encounter Location Date Provider Diagnosis [address] [place] [address] 09/27/2023 Catherine Wan Plan Of Treatment No Information Progress Notes * SAPNA LEYDOB:1995 (29 yo F)Acc No.[id number]:09/27/2023 Progress Notes Patient: SAPNA ALFONSO Provider: Tolu Wan MD :1995 A ge:27 Y S ex:Female Date:09/27/2023 Address:[facility] [address] [id number] Pcp:Sal Mooney Subjective: * Chief Complaints: * V iability & dates * Electronic signature of Maryellen Wan MD on 01/23/2025 at 10:59 PM CDT Sign off status: Pending * Provider: Tolu Wan MD Date: 0 09/27/2023 Generated for Estuardo miles/Stefanie/eTransmitting on: 1 10:59 PM CDT
--- OUTSIDE RECORDS SUMMARY | 2024-11-27 10:45 | XMS_ITS ---
Author Organization [facility] Address [address] [place] [address] Care Team Providers Care Ceramic Tiler Name Role Phone Sal Mooney Primary Care Provider Catherine Sauceda [phone] REASON FOR VISIT 11/2024 PAP Encounters Encounter Location Date Provider Diagnosis [address] [place] [address] 11/27/2024 Catherine Wan Plan Of Treatment No Information Progress Notes * SAPNA LEYDOB:1995 (29 yo F)Acc No.[id number]:11/27/2024 Patient: SAPNA ALFONSO Provider: Tolu Wan MD :1995 A ge:28 Y S ex:Female Date:11/27/2024 Address:[facility] [address] [id number] Pcp:Sal Mooney Subjective: * Chief Complaints: * PAP * Electronic signature of Maryellen Wan MD on 01/23/2025 at 10:59 PM CDT Sign off status: Pending * Provider: Tolu Wan MD Date: 0 11/27/2024 Generated for Estuardo miles/Stefanie/eTransmitting on: 1 10:59 PM CDT
[2025-01-23 22:57] VITALS: BP 127/79; PULSE 98; RESP 18; TEMP 36.7; O2SAT 100; BMI 18.7
--- OUTSIDE RECORDS SUMMARY | 2025-01-23 22:59 | XMS_ITS | Patient Health Record ---
Author Organization [facility] Address [address] [place] [address] Care Team Providers Care Bindery Operator Name Role Phone Vinicio Sal Primary Care Provider Catherine Sauceda Unavailable [phone] Reason For Referral No Information Social History Tobacco Use: Social History Observation Description Date Details (start date - stop date) Never Smoker NA - NA Social History Drugs/Alcohol: Social Info Question Answer Notes Drugs Have you used drugs other than those for medical reasons in the past 12 months? No Drug/Alcohol: Social Info Question Answer Notes AUDIT-C (Standard) Did you have a drink containing alcohol in the past year? No Points 0 Interpretation Negative Tobacco Use: Social Info Question Answer Notes Tobacco Control (Standard) Tobacco use: Nonsmoker Section Notes: Negative x3, lives with husb and and daughter, safe, denies h/o abuse, SAHM Plan Of Treatment No Information Medical (General) History Surgical History Surgery Date(Month/Year) nasal polypectomy 2010 tonsillectomy 2002
--- OUTSIDE RECORDS SUMMARY | 2025-01-23 22:59 | XMS_ITS | Clinical Summary ---
Author Organization [facility] Address [address] [place] [address] Phone Care Team Providers Care Dental Cream Maker Name Role Phone Unavailable Primary Care Provider Unavailabl e Allergies No known active allergies Medications diaphragms, contoured (Caya Contoured) 65-80 mm DiaphragmIndicatio ns:Encounter for initial prescription of other contraceptives Insert 1 Device vaginally daily. 1 Each 2 Active Active Problems Problem Noted Date Diagnosed Date Threatened miscarriage in early 2023 Normal spontaneous vaginal delivery 10/28/2021 Encounter for supervision of normal first in first trimester 04/15/2021 , incidental 03/18/2021 Type A blood, Rh negative 03/18/2021 Primiparous 03/18/2021 Labor and delivery indication for care or interv ention Comments Yes Immunizations Immunization Administration Dates Next Due (ADACEL/BOOSTRIX)(10 YR UP) TDAP VACCINE, 0.5ML, IM 07/22/2021 Family History Medical History Relation Name Comments Breast Cancer Neg Hx Colon Cancer Neg Hx Ovarian Cancer Neg Hx Social History Tobacco Use Types Packs/Day Years Used Date Smoking Tobacco: Never Smokeless Tobacco: Never Alcohol Use Standard Drinks/Week Comments Not Currently 0 (1 standard drink = 0.6 oz pur e alcohol) Feeling Safe Answer Date Recorded Are you in a relationship wi th someone who hurts you emotionally and/or physically? No 08/20/2023 Comments Yes Sex and Gender Information Value Date Recorded Sex Assigned at Not on file Legal Sex Female 2:56 PM CDT Gender Identity Not on file Sexual Orientation Not on file Last Filed Vital Signs Vital Sign Reading Time Taken Comments Blood Pressure 108/81 08/20/2023 2:00 PM CDT Pulse 76 08/20/2023 2:00 PM CDT Temperature 36.6 C (97.8 F) 08/20/2023 2:00 PM CDT Respiratory Rate 16 08/20/2023 1:20 PM CDT Oxygen Saturation 100% 08/20/2023 2:00 PM CDT Inhaled Oxygen Concentration - - Weight 60.5 kg (133 lb 6.4 oz) 08/20/2023 11:45 AM CDT Height 172.7 cm (5' 8 ) 08/20/2023 11:45 AM CDT Body Mass Index 20.28 08/20/2023 11:45 AM CDT Plan of Treatment Health Maintenance Due Date Last Done Comments HEPATITIS B VACCINES (1 of 3 - 19+ 3-dose series) 04/2013 HPV VACCINES (1 - 3-dose SCDM series) 2021 INFLUENZA VACCINE (#1) 2024 PAP SMEAR 2024 12/09/2021 CERVICAL CANCER SCREENING 12/09/2026 HPV/Cotest (21-29) 12/09/2026 12/09/2021 HPV/Cotest (30-65) 12/09/2026 12/09/2021 DTAP/TDAP/TD VACCINES (2 - Td or Tdap) 07/23/2031 RSV VACCINE (60+ or ) (1 - 1-dose 75+ series) 2069 Procedures Procedure Name Priority Date/Time Associated Diagnosis Comments CERV/VAG CYTO SCREEN PAP RLFX HPV Routine 12/09/2021 3:23 PM CDT Screening for cervical cancer from Last 3 Months or Most Recently Relevant to Health Maintenance Results * CERV/VAG CYTO SCREEN PAP RLFX HPV (12/09/2021 3:23 PM CDT) CLINICAL INFORMATION Nora Trevino Comment:Information not prov ided LAST MENSTRUAL PERIOD Nora Trevino Comment:INFORMATION NOT PROV IDED PREV PAP: [email or web address] Diagnostics[facility]ra Trevino Comment:INFORMATION NOT PROV IDED PREV BX: [facility]-Philippe Trevino Comment:INFORMATION NOT PROV IDED SOURCE [facility]-S t Uriel Comment:ENDOCERVIX ADEQUACY: Nora XinrongMayra Trevino Comment:SATISFACTORY FOR KARLA LUATION PAP INTERP Nora ElaineMayra Trevino Comment: Negative for intraepithelial lesion or malignancy. Atrophic pattern; predominantly parabasal cells COMMENT (PAP TEST) Q uest Max Trevino Comment: This Pap test has been evaluated with computer assisted technology. AGRICULTURAL EQUIPMENT TEST ENGINEER: Adamaris Trevino Comment: TMK, CT(ASCP) CT screening location: [place] [address] [address] [place] [address] [address] NOTE Que [address] Max Trevino Comment: EXPLANATORY NOTE: The Pap is a screening test for cervical cancer. It is not a diagnostic test and is subject to false negative and false positive results. It is most reliable when a satisfactory sample, regularly obtained, is submitted with relevant clinical findings and history, and when the Pap result is evaluated along with historic and current clinical information. Test Performed at: [place] [address] [address] [place] [id number] Franklin Gonzalez Genital SWAB OF ENDOCERVIX / Unknown 12/09/2021 3:23 PM CDT 12/10/2021 7:41 AM CDT Mare Ford APRN-CNM PATHOLOGY/CYTOLOGY ORD ERABLES Final Result [facility] [phone] [place] [address] [address] [place] [id number] from Last 3 Months or Most Recently Relevant to Health Maintenance Advance Directives For more information, please contact: [phone] * Full Code (Latest Code Status on File) Date Activated Date Inactivated Comments 10/28/2021 1:02 PM 10/29/2021 6:19 PM * Full Code Date Activated Date Inactivated Comments 10/28/2021 3:24 AM 10/28/2021 11:16 AM
--- NOTE | 2025-01-23 23:25 | CTR_ITS ---
PROCEDURE INFORMATION: Exam: CT Abdomen And Pelvis With Contrast Exam date and time: 01/24/2025 12:27 AM Age: 29 years old Clinical indication: Abdominal pain; Additional info: Ruq pain x3 weeks, weight loss, patient reports mass, also reporting partial constipation TECHNIQUE: Imaging protocol: Computed tomography of the abdomen and pelvis with contrast. Radiation optimization: All CT scans at this facility use at least one of these dose optimization techniques: automated exposure control; mA and/or kV adjustment per patient size (includes targeted exams where dose is matched to clinical indication); or iterative reconstruction. Contrast material: OMNI 350; Contrast volume: 80 ml; Contrast route: INTRAVENOUS (IV); Other contrast: Oral; COMPARISON: CR XR abdomen 1V* [id number] 01/15/2025 3:38 PM RADIATION DOSE METRICS: Total DLP (mGy-cm): 339.6 FINDINGS: Liver: There are findings of 4 mm right liver lobe cyst.. No mass. Gallbladder and biliary ducts: Unremarkable. No calcified stones. No ductal dilation. Pancreas: Unremarkable. No ductal dilation. Spleen: Unremarkable. No splenomegaly. Adrenal glands: Normal. No mass. Kidneys and ureters: Unremarkable. No hydronephrosis. Stomach and bowel: There is possible thickening of the distal gastric body and gastric antrum further evaluation recommended inflammatory pathology of the gastric wall not excluded and is suspected. There is demonstration of air-fluid levels within nondistended large and small bowel compatible with the appearance of infectious gastroenteritis. There is demonstration of the left lower abdomen image 50 series 3 although intussusception of the jejunum there is however no obstruction. Findings could be related to a transient intussusception further workup recommended a repeat examination would be of value to assess resolution of this finding. Appendix: No evidence of appendicitis. Intraperitoneal space: There is no intra abdominopelvic free air present. Vasculature: Unremarkable. No abdominal aortic aneurysm. Lymph nodes: Unremarkable. No enlarged lymph nodes. Urinary bladder: Unremarkable as visualized. Reproductive: There is demonstration of a collapse 2.1 cm left ovarian hemorrhagic cyst with moderate amount of hemorrhagic free fluid present in the pelvis findings most suggestive of ruptured left whole-body and hemorrhagic cyst. Bones/joints: The appendix is normal bone was visualized Soft tissues: Unremarkable. CT/CT abdomen pelvis w con* [id number] IMPRESSION: Findings most compatible with a small bowel intussusception in the left lower abdomen nonobstructing could represent a transient intussusception however needs further follow-up to ensure resolution Findings of moderate amount of hemorrhagic free fluid present in the pelvis with a collapsed 2.1 cm left ovarian hemorrhagic cyst compatible with findings of ruptured left ovarian hemorrhagic cyst Findings a 4 mm right liver lobe cyst
[2025-01-23 23:39] LABS: Hematocrit 36.7 % (36-47); Hemoglobin 13.40 g/dL (11.27-16.99); Mean Corpuscular HGB Conc 36.5 g/dL (30-55); Mean Corpuscular Hemoglobin 31.2 pg (27-33); Mean Corpuscular Volume 85.5 fl (85-98); Nucleated Red Blood Cells % 0 %; Platelet Count 225 10^3/cmm (157-399); Red Blood Count 4.29 10^6/uL (3.85-5.65); White Blood Count 6.12 10^3/uL (3.29-11.43)
[2025-01-23 23:56] LABS: Alanine Aminotransferase 11 U/L (0-33); Albumin Level 4.7 g/dL (3.5-5.2); Alkaline Phosphatase 47 U/L (35-105); Anion Gap 15.4 (5-19); Aspartate Amino Transferase 15 U/L (0-32); Blood Urea Nitrogen 6 mg/dL (6-20); Calcium 9.0 mg/dL (8.5-10.5); Carbon Dioxide 23 mmol/L (22-29); Chloride 104 mmol/L (98-107); Creatinine Clr Calc Pharmacy 135.8399; Globulin 2.2 g/dL (1.3-4.6); Glucose 106 mg/dL (65-115); Lipase 21 U/L (13-60); Osmolality Calculated 286 mOsm/kg (285-295); Potassium 3.4 mmol/L (3.5-5.1); Sodium 139 mmol/L (136-145); Total Protein 6.9 g/dL (6.6-8.7)
[2025-01-24] VITALS (9 sets, daily range): BP systolic 101–136; BP diastolic 65–81; PULSE 70–97; RESP 12–16; O2SAT 95–100
[2025-01-24 00:07] LABS: HCG, Serum Qual Negative (Negative)
--- NOTE | 2025-01-24 00:13 | W.ED.ABDPA2 ---
HPI - Abdominal Pain General: Chief Complaint: Abdominal Pain Stated Complaint: Constipated Time Seen by Provider: 01/23/25 23:03 History of Present Illness: Patient presenting to the emergency department with approximately 2-week history of right upper quadrant abdominal pain, partial constipation, she has attempted many different bowel movement enhancers including Dulcolax, MiraLAX, magnesium citrate, no relief, she has had small geraldine of stool and is passing flatus, no nausea or vomiting, no abnormal vaginal discharge or bleeding, no hematuria dysuria urgency or frequency of urination, no history of chronic GI issues but reports that her sister has a history of years of GI issues/constipation. Related Data Date of Last Menstrual Period: 01/09/25 Previous Rx's ?Medication ?Instructions ?Recorded acetaminophen 325 mg capsule 325 mg PO Q4H PRN fever or pain 11/05/21 #60 caps Allergies Allergy/AdvReac Type Severity Reaction Status Date / Time No Known Allergies Allergy Verified 01/23/25 23:04 [facility] Female Reproductive History: Date of last menstrual period: 01/09/25 Physical Exam Narrative: EXAM NARRATIVE: Gen: A&Ox4, no acute distress, nontoxic appearing HEENT: Normocephalic, atraumatic, no scleral icterus, external ears normal, moist mucous membranes Neck: Supple, full range of motion, no observable masses Lungs: No Respiratory distress, Lungs clear to auscultation bilaterally no rales, rhonchi, wheezing CV: Regular rate and rhythm, no murmur, no pitting edema to lower extremities bilaterally Abdomen: Soft, nondistended, mildly tender to palpation to the right hemiabdomen, no McBurney point tenderness, no Aguayo sign, patient reports a palpable mass to the right upper quadrant but on my palpation I feel some abdominal musculature with a normal liver margin and no appreciable mass, normal active bowel sounds throughout all 4 quadrants MSK: No joint swelling, FROM all 4 extremities Skin: No rashes, petechiae, lesions. Normal color per patient. Neuro: Alert and oriented, no slurred speech, sensation and strength grossly intact all 4 extremities Psych: Appropriate for situation. Course Reevaluation(s): Reevaluation #1: Reassessed the patient, her condition remains stable, she has no worsening pain and repeat abdominal exam is benign, plan for repeat CT at 4 AM to assess for resolution versus persistence of this possible small bowel intussusception with an atypical appearance on CT Time: 02:00 Reevaluation #2: patient pending results repeat ct scan, signed out to Dr. Farias to f/u imaging and disposition appropriately Consultations: Consultation #1: Spoke with radiologist regarding CT scan, he sees a possible transient small bowel intussusception without evidence of bowel obstruction, recommends repeat CT to evaluate resolution Time: 01:00 Vital Signs: Vital signs: Vital Signs Temperature 98.1 F 01/23/25 22:57 Pulse Rate 80 01/24/25 05:00 Respiratory Rate 16 01/24/25 03:30 Blood Pressure 105/70 01/24/25 05:00 Pulse Oximetry 100 01/24/25 05:00 Oxygen Delivery Me thod Room Air 01/24/25 05:00 MDM - Abdominal Pain Medical Decision Making 29-year-old female presenting the emergency department with acute onset of constipation over the last 2 weeks with right upper quadrant abdominal pain and subjective mass to the area that is not appreciable on exam, well-appearing with stable vital signs in the ED, nonperitoneal abdomen, generally well-appearing, plan for imaging and labs to assess for occult malignancy, hepatomegaly, severity of constipation rule out bowel obstruction, reassess for disposition Lab Data Labs showing no anemia or leukocytosis, minimal hypokalemia not clinically relevant, normal renal function, normal LFTs, normal lipase, urinalysis negative for UTI 01/23/25 23:34 01/23/25 23:34 Labs/Radiology: Radiology Impressions Abdomen/Pelvis CT 01/24/25 03:42 IMPRESSION: 1. Resolved left-sided intussusception involving small bowel. 2. Apparent wall fold thickening of the transverse colon and sigmoid colon more likely artifact due to incomplete distension than multifocal colitis. Clinical scenario should determine need for endoscopic correlation. 3. Otherwise, no acute process identified. 4. Recommend correlation with the body the report for further details regarding additional nonemergent findings. Laboratory Results WBC 6.12 10^3/uL (3.29-11.43) 01/23/25 23:34 RBC 4.29 10^6/uL (3.85-5.65) 01/23/25 23:34 Hgb 13.40 g/dL (11.27-16.99) 01/23/25 23:34 Hct 36.7 % (36-47) 01/23/25 23:34 MCV 85.5 fl (85-98) 01/23/25 23:34 MCH 31.2 pg (27-33) 01/23/25 23:34 MCHC 36.5 g/dL (30-55) 01/23/25 23:34 RDW 11.4 % (12.1-15.1) L 01/23/25 23:34 Plt Count 225 10^3/cmm (157-399) 01/23/25 23:34 MPV 9.5 fL (7.4-10.4) 01/23/25 23:34 Neut % (Auto) 55.6 % 01/23/25 23:34 Lymph % (Auto) 35.0 % 01/23/25 23:34 Page % (Auto) 7.7 % 01/23/25 23:34 Eos % (Auto) 0.8 % 01/23/25 23:34 Baso % (Auto) 0.7 % 01/23/25 23:34 Neut # (Auto) 3.41 10^3/uL (1.8-7.7) 01/23/25 23:34 Lymph # (Auto) 2.1 10^3/uL (0.8-4.8) 01/23/25 23:34 Page # (Auto) 0.5 10^3/uL (0.2-0.9) 01/23/25 23:34 Eos # (Auto) 0.1 10^3/uL (0.0-0.8) 01/23/25 23:34 Baso # (Auto) 0.0 10^3/uL (0.0-0.1) 01/23/25 23:34 Nucleated RBC % (auto) 0 % 01/23/25 23:34 Nucleated RBCs # 0.0 /100WBC 01/23/25 23:34 Sodium 139 mmol/L (136-145) 01/23/25 23:34 Potassium 3.4 mmol/L (3.5-5.1) L 01/23/25 23:34 Chloride 104 mmol/L (98-107) 01/23/25 23:34 Carbon Dioxide 23 mmol/L (22-29) 01/23/25 23:34 Anion Gap 15.4 (5-19) 01/23/25 23:34 BUN 6 mg/dL (6-20) 01/23/25 23:34 Creatinine 0.6 mg/dL (0.5-0.9) 01/23/25 23:34 GFR Calculation 117.4 mL/min (90-130) 01/23/25 23:34 Glucose 106 mg/dL (65-115) 01/23/25 23:34 Calculated Osmolality 286 mOsm/kg (285-295) 01/23/25 23:34 Calcium 9.0 mg/dL (8.5-10.5) 01/23/25 23:34 Total Bilirubin 0.5 mg/dL (0.15-1.2) 01/23/25 23:34 AST 15 U/L (0-32) 01/23/25 23:34 ALT 11 U/L (0-33) 01/23/25 23:34 Alkaline Phosphatase 47 U/L (35-105) 01/23/25 23:34 Total Protein 6.9 g/dL (6.6-8.7) 01/23/25 23:34 Albumin 4.7 g/dL (3.5-5.2) 01/23/25 23:34 Globulin 2.2 g/dL (1.3-4.6) 01/23/25 23:34 Lipase 21 U/L (13-60) 01/23/25 23:34 HCG, Qual Negative (Negative) 01/23/25 23:34 Urine Color Yellow (Yellow) 01/24/25 00:12 Urine Appearance Clear (CLEAR) 01/24/25 00:12 Urine pH 7.5 (5-7) 01/24/25 00:12 Ur Specific [place] 1.007 (1.005-1.030) 01/24/25 00:12 Urine Protein Negative (Negative) 01/24/25 00:12 Urine Glucose (UA) Negative (Normal) 01/24/25 00:12 Urine Ketones Trace (Negative) 01/24/25 00:12 Urine Blood Negative (Negative) 01/24/25 00:12 Urine Nitrate Negative (Negative) 01/24/25 00:12 Urine Bilirubin Negative (Negative) 01/24/25 00:12 Urine Urobilinogen 0.2 mg/dL (Negative) 01/24/25 00:12 Ur Leukocyte Esterase Trace (Negative) A 01/24/25 00:12 Urine RBC Rare /hpf (0-2) 01/24/25 00:12 Urine WBC 0-4 /hpf (0-5) H 01/24/25 00:12 Ur Squamous Epith Cells 5-10 /hpf (0-5) H 01/24/25 00:12 Amorphous Sediment Not Reportable 01/24/25 00:12 Urine Bacteria None /hpf (NONE) 01/24/25 00:12 Urine Mucus Trace /hpf 01/24/25 00:12 Urine Yeast 1+ /hpf H 01/24/25 00:12 All radiology interpretation(s) finalized by discharge ED provider radiology interpretation(s): CT of the abdomen and pelvis showing ruptured hemorrhagic ovarian cyst, also showing possible gastroenteritis of the gastric and small intestine, there is also an area in the left lower quadrant which shows possible small bowel intussusception without residual upstream dilation or bowel obstruction Discharge Plan Discharge Condition: Stable Prescriptions: No Action acetaminophen 325 mg capsule 325 mg PO Q4H PRN (Reason: fever or pain) Qty: 60 0RF Referrals: Kraig Blanco MD [Primary Care Provider, Family Practice] Print Language: Yemeni Coding Level of Care Code ED Deputy Probation Officer for Vickie Pabon
[2025-01-24 00:20] LABS: Glucose Urine UA Negative (Normal); Nitrate Urine Negative (Negative); Specific Gravity, Urine 1.007 (1.005-1.030)
[2025-01-24 00:36] LABS: UA Manual Slide Review YES
--- NOTE | 2025-01-24 03:42 | CTR_ITS ---
PROCEDURE INFORMATION: Exam: CT Abdomen And Pelvis With Contrast Exam date and time: 01/24/2025 3:55 AM Age: 29 years old Clinical indication: Abdominal pain; Additional info: Repeat scan assess possible llq intussusception TECHNIQUE: Imaging protocol: Computed tomography of the abdomen and pelvis with contrast. Radiation optimization: All CT scans at this facility use at least one of these dose optimization techniques: automated exposure control; mA and/or kV adjustment per patient size (includes targeted exams where dose is matched to clinical indication); or iterative reconstruction. Contrast material: OMNI 350; Contrast volume: 80 ml; Contrast route: INTRAVENOUS (IV); COMPARISON: CT abdomen pelvis w con* [id number] 01/24/2025 12:27 AM RADIATION DOSE METRICS: Total DLP (mGy-cm): 365.43 FINDINGS: Lungs: Visualized lung bases are clear. Liver: Tiny cyst right hepatic lobe too small to characterize although likely benign. The liver is otherwise unremarkable. Gallbladder and biliary ducts: Normal. No calcified stones. No ductal dilation. Pancreas: Normal. No ductal dilation. Spleen: Normal. No splenomegaly. Adrenal glands: Normal. No mass. Kidneys and ureters: No hydroureteronephrosis or obstructing calculus identified. likely benign left renal cyst requiring no further evaluation. Multiple nonobstructive right sided kidney stones measure as large as 4 mm. 5 mm likely benign left renal cyst requiring no further evaluation. Stomach and bowel: The small bowel is collapsed and unopacified with contrast limiting assessment. Interval resolution of left-sided intussusception. No obstruction. Apparent wall fold thickening involving the sigmoid colon and portions of the transverse colon more likely artifact due to incomplete distension than multifocal colitis. Appendix: No evidence of appendicitis. Intraperitoneal space: Unremarkable. No free air. No significant fluid collection. Vasculature: Unremarkable. No abdominal aortic aneurysm. Lymph nodes: Unremarkable. No enlarged lymph nodes. Urinary bladder: Unremarkable as visualized. Reproductive: Unremarkable as visualized. Bones/joints: Unremarkable. No acute fracture. Soft tissues: Unremarkable. CT/CT abdomen pelvis w con* [id number] IMPRESSION: 1. Resolved left-sided intussusception involving small bowel. 2. Apparent wall fold thickening of the transverse colon and sigmoid colon more likely artifact due to incomplete distension than multifocal colitis. Clinical scenario should determine need for endoscopic correlation. 3. Otherwise, no acute process identified. 4. Recommend correlation with the body the report for further details regarding additional nonemergent findings.
[2025-01-24] MEDS: iohexol 350 mg/mL 500 mL Btl (per mL) IV (04:05)
--- NOTE | 2025-01-24 10:01 | DCPLANNER ---
Message sent to [facility] for follow up
== END 2025-01-24 06:04 | disposition home or self-care (01) ==
PROVIDERS: Emergency Provider Student in an Organized Health Care Education/Training Program; PCP Family Medicine
DX: K52.9 Noninfective gastroenteritis and colitis, unspecified (principal); N83.202 Unspecified ovarian cyst, left side; K63.89 Other specified diseases of intestine
CPT/HCPCS: 74177; 80053; 81001; 83690; 84703; 85025; 99285